=== PATIENT | female | born 1995 | race American Indian/Alaskan Native ===

== ENCOUNTER 2017-03-20 10:36 | Emergency (ER) | payer OTHER ==
[2017-03-20 11:17] VITALS: BP 128/87
--- NOTE | 2017-03-20 11:59 | Emergency Department Report ---
ED General Adult HPI - General Chief complaint: Skin Rash Stated complaint: RASH Time Seen by Provider: 03/20/17 11:54 Source: patient Mode of arrival: Ambulatory Limitations: No Limitations - History of Present Illness Initial comments: 1-year-old female with history of eczema presents to the ED complaining of a rash to bilateral hands and feet that are itchy. States that she is using triamcinolone with no relief. States that she has also changed her soap with no relief. Denies pain, swelling, pus drainage. -: Gradual, week(s) (1) - Related Data Previous Rx's Medication Instructions Recorded Last Taken Type methylPREDNISolone [Medrol] 4 mg PO QDAY #1 tab.ds.pk 03/20/17 Unknown Rx Allergies Allergy/AdvReac Type Severity Reaction Status Date / Time No Known Allergies Allergy Verified 03/20/17 11:11 ED Review of Systems ROS: Stated complaint: RASH Other details as noted in HPI Constitutional: denies: chills, fever Eyes: denies: eye pain, eye discharge, vision change ENT: denies: ear pain, throat pain Respiratory: denies: cough, shortness of breath, wheezing Cardiovascular: denies: chest pain, palpitations Endocrine: no symptoms reported Gastrointestinal: denies: abdominal pain, nausea, diarrhea Genitourinary: denies: urgency, dysuria, discharge Musculoskeletal: denies: back pain, joint swelling, arthralgia Skin: rash. denies: lesions Neurological: denies: headache, weakness, paresthesias Psychiatric: denies: anxiety, depression Hematological/Lymphatic: denies: easy bleeding, easy bruising ED Past Medical Hx - Past Medical History Previous Medical History?: Yes Additional medical history: Eczema - Surgical History Past Surgical History?: No - Medications Home Medications: Home Medications Medication Instructions Recorded Confirmed Last Taken Type methylPREDNISolone [Medrol] 4 mg PO QDAY #1 tab.ds.pk 03/20/17 Unknown Rx ED Physical Exam - General Limitations: No Limitations General appearance: alert, in no apparent distress - Head Head exam: Present: atraumatic, normocephalic - Eye Eye exam: Present: normal appearance - ENT ENT exam: Present: mucous membranes moist - Neck Neck exam: Present: normal inspection - Respiratory Respiratory exam: Present: normal lung sounds bilaterally. Absent: respiratory distress - Cardiovascular Cardiovascular Exam: Present: regular rate, normal rhythm. Absent: systolic murmur, diastolic murmur, rubs, gallop - GI/Abdominal GI/Abdominal exam: Present: soft, normal bowel sounds - Extremities Exam Extremities exam: Present: normal inspection - Back Exam Back exam: Present: normal inspection - Neurological Exam Neurological exam: Present: alert, oriented X3 - Psychiatric Psychiatric exam: Present: normal affect, normal mood - Skin Skin exam: Present: warm, dry, intact, normal color, other (eczematous rash to bilateral hands. no ttp, erythema.). Absent: rash ED Course Vital Signs 03/20/17 11:11 Temperature 97.8 F Pulse Rate 73 Respiratory 18 Rate Blood Pressure 128/87 O2 Sat by Pulse 98 Oximetry ED Medical Decision Making - Medical Decision Making patient is resting comfortably at this time. VSS for DC. NAD at this time. Critical care attestation.: If time is entered above; I have spent that time in minutes in the direct care of this critically ill patient, excluding procedure time. ED Disposition Clinical Impression: Eczema of both hands Disposition: DC-01 TO HOME OR SELFCARE Is pt being admited?: No Does the pt Need Aspirin: No Condition: Good Instructions: Eczema (ED) Prescriptions: methylPREDNISolone [Medrol] 4 mg PO QDAY #1 tab.ds.pk Referrals: LIT LONG MD [Staff Physician] - 3-5 Days Forms: Work/School Release Form(ED) Time of Disposition: 12:04
[2017-03-20] MEDS ORDERED: DECADRON IM ONE (12:04)
== END 2017-03-20 12:22 | disposition home or self-care (01) ==
LOC: ED 10:36
DX: L30.9 Dermatitis, unspecified (principal)
CPT/HCPCS: 96372; 99282; J1100